=== PATIENT | female | born 1970 | race Caucasian/White ===

== ENCOUNTER 2019-03-23 21:09 | Emergency (ER) | payer MEDICAID ==
[~2019-03-23] VITALS: Ht 170.2 cm; Wt 81.2 kg
[2019-03-23 21:11] VITALS: BP 137/77
== END 2019-03-23 21:56 | disposition home or self-care (01) ==
LOC: ED 21:55
DX: K02.9 Dental caries, unspecified (principal)
CPT/HCPCS: 41800; 99283